=== PATIENT | female | born 1950 | race Caucasian/White ===

== ENCOUNTER 2022-02-13 01:05 | Day surgery (SDC) | payer MEDICARE, OTHER ==
[~2022-02-13 01:05] MED LIST: Calcium Citrat250 MG PO; Hair, Skin & N1 EACH PO; LETR2.5 PO; ZOLEDRONIC4 MG/100 M IV
== END 2022-02-13 10:28 | disposition home or self-care (01) ==
LOC: ATC 01:05
DX: R42 Dizziness and giddiness (principal); R55 Syncope and collapse; E78.5 Hyperlipidemia, unspecified; C50.919 Malignant neoplasm of unspecified site of unspecified female breast
CPT/HCPCS: 80400; 82533; 96374; J0834

== ENCOUNTER 2023-05-11 07:10 | Day surgery (SDC) | payer MEDICARE, OTHER ==
[~2023-05-11] VITALS: Ht 165.1 cm; Wt 50.0 kg
[~2023-05-11 07:10] MED LIST changes: +ATOR20 PO
[2023-05-11 09:24] VITALS: BP 101/70
== END 2023-05-11 09:39 | disposition home or self-care (01) ==
LOC: ORSCSDS 07:10
PROVIDERS: Surgery
PROC: 0DJD8ZZ Inspection of Lower Intestinal Tract, Via Natural or Artificial Opening Endoscopic (ICD-10-PCS; principal; 2023-05-11 08:30)
DX: Z12.11 Encounter for screening for malignant neoplasm of colon (principal); Z15.01 Genetic susceptibility to malignant neoplasm of breast; Z15.02 Genetic susceptibility to malignant neoplasm of ovary; Z15.09 Genetic susceptibility to other malignant neoplasm; E78.5 Hyperlipidemia, unspecified; Z79.899 Other long term (current) drug therapy
CPT/HCPCS: J2704; J7120